=== PATIENT | female | born 1960 | race African-American/Black ===

== ENCOUNTER 2020-11-02 09:33 | Emergency (ER) | payer SELFPAY ==
[~2020-11-02] VITALS: Ht 165.1 cm; Wt 103.4 kg
[2020-11-02 09:38] VITALS: BP 149/78
[2020-11-02] MEDS ORDERED: KETOROLAC 60 MG/2 ML VIAL IM ONE (09:50)
--- NOTE | 2020-11-02 09:53 | NUR ---
PATIENT AMBULATED TO ER BED 04
--- NOTE | 2020-11-02 09:55 | NUR ---
STEVE PICHARDO AT BEDSIDE
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
--- NOTE | 2020-11-02 10:24 | NUR ---
Pt changed into gown and rad called to advise that pt is ready for x-ray.
--- NOTE | 2020-11-02 10:26 | NUR ---
Pt transported to [facility] by wheelchair
--- NOTE | 2020-11-02 10:42 | NUR ---
PT RETURNED FROM X-RAY ONTO ROOM [facility].
--- NOTE | 2020-11-02 11:20 | NUR ---
PT REASSESSED FOR PAIN. PT REPORTS NECK AND BACK PAIN @ 7/10, ARM PAIN "NO LONGER THERE." VSS.
[2020-11-02 11:30] VITALS: BP 153/89
== END 2020-11-02 11:30 | disposition home or self-care (01) ==
LOC: MED 09:33
DX: S13.4XXA Sprain of ligaments of cervical spine, initial encounter (principal); E11.9 Type 2 diabetes mellitus without complications; I10 Essential (primary) hypertension; Z90.49 Acquired absence of other specified parts of digestive tract; V89.2XXA Person injured in unspecified motor-vehicle accident, traffic, initial encounter; Y93.89 Activity, other specified; Y92.89 Other specified places as the place of occurrence of the external cause; Y99.8 Other external cause status
CPT/HCPCS: 72040; 81002; 81025; 96372; 99283; J1885

== ENCOUNTER 2024-02-14 11:13 | Emergency (ER) | payer OTHER ==
[~2024-02-14] VITALS: Ht 165.1 cm; Wt 86.2 kg
[2024-02-14 12:00] VITALS: BP 160/85; PULSE 67; RESP 18; TEMP 97.3; O2SAT 98
[2024-02-14 13:00] VITALS: O2SAT 98
[2024-02-14 14:35] LABS: BASOPHILS % (AUTO) 0.7 % (0.0-2.0); EOSINOPHILS # (AUTO) 0.1 K/uL (0-0.4); EOSINOPHILS % (AUTO) 1.9 % (0.0-4.0); HEMATOCRIT 33.4 % (36-48); LYMPHOCYTES # (AUTO) 2.8 K/uL (2.5-16.5); LYMPHOCYTES % (AUTO) 49.9 % (20.5-51.1); MEAN CORPUSCULAR HEMOGLOBIN 27 pg (27-31); MEAN CORPUSCULAR HGB CONC 33 g/dL (33-37); MEAN CORPUSCULAR VOLUME 81.5 fL (80-94); MONOCYTES # (AUTO) 0.3 K/uL (0.8-1.0); NEUTROPHILS # (AUTO) 2.3 K/uL (1.8-7.7); NEUTROPHILS % (AUTO) 41.5 % (42.2-75.2); PLATELET COUNT (AUTO) 257 K/uL (140-450); RED BLOOD CELL COUNT(AUTO) 4.09 MIL/uL (4.20-5.40); RED CELL DISTRIBUTION WIDTH 16.9 % (11.6-13.7); WHITE BLOOD COUNT (AUTO) 5.6 K/uL (4.8-10.8)
[2024-02-14 14:49] LABS: ANION GAP 7.5 (8-16); CARBON DIOXIDE 30.2 mmol/L (21-32); CREATININE 0.6 mg/dL (0.6-1.3); POTASSIUM 3.7 mmol/L (3.5-5.1)
[2024-02-14 15:17] LABS: ALANINE AMINOTRANSFERASE 19 U/L (12-78); ALBUMIN 3.3 g/dL (3.4-5.0); ALKALINE PHOSPHATASE 72 U/L (50-136); ASPARTATE AMINOTRANSFERASE 19 U/L (15-37); BILIRUBIN,DIRECT 0.1 mg/dL (0.0-0.3); TOTAL BILIRUBIN 0.2 mg/dL (0.0-1.0); TOTAL PROTEIN, SERUM 7.1 g/dL (6.4-8.2)
[2024-02-14] MEDS ORDERED: FURO20TA8 PO (16:02)
== END 2024-02-14 16:09 | disposition home or self-care (01) ==
LOC: MED 11:13
DX: R60.0 Localized edema (principal); E11.9 Type 2 diabetes mellitus without complications; I10 Essential (primary) hypertension; Z79.899 Other long term (current) drug therapy
CPT/HCPCS: 36415; 71045; 80048; 80076; 83880; 84484; 85025; 93005; 99285